=== PATIENT | male | born 1940 | race Caucasian/White ===

== ENCOUNTER 2023-07-12 15:43 | Emergency (ER) | payer MEDICARE ==
[~2023-07-12] VITALS: Ht 182.9 cm; Wt 100.0 kg
[2023-07-12 15:49] VITALS: BP 0/0; PULSE 0; RESP 0; O2SAT 0
[2023-07-12] MEDS ORDERED: TENECTEPLASE 50MG/VIAL (FOR MI OR PE) IV NR (16:00)
[2023-07-12] MEDS ORDERED: TENECTEPLASE 50MG/VIAL IV ONE (16:00)
== END 2023-07-12 18:27 ==
LOC: ER 15:43 → EDSEX 15:43 → ER 18:27
DX: I46.9 Cardiac arrest, cause unspecified (principal)
CPT/HCPCS: 36556; 82962; 96374; 99291; J2997